=== PATIENT | male | born 1960 | race American Indian/Alaskan Native ===

== ENCOUNTER 2023-08-12 18:42 | Emergency (ER) | payer OTHER ==
[~2023-08-12] VITALS: Ht 182.9 cm; Wt 73.0 kg
[2023-08-12] MEDS ORDERED: SERTRALINE HCL25 MG PO (19:18)
[2023-08-12] MEDS ORDERED: LIPITOR20 MG (19:19)
[2023-08-12 20:00] LABS: BASOPHILS 1.8 % (0-2); EOSINOPHILS 3.6 % (0-6); HEMATOCRIT 43.7 % (35.0-50.0); HEMOGLOBIN 14.8 g/dL (12.0-18.0); LYMPHOCYTES 33.1 % (24-44); MCH 30.1 (27-36); MCHC 33.8 g/dl (30-36); MONOCYTES 8.6 % (0-12); NEUTROPHILS 52.9 % (39-80); PLATELET COUNT 269 K/uL (140-440); RBC 4.91 M/ul (4.3-5.7); RDW 13.6 (10.5-15.0)
[2023-08-12 20:15] LABS: ALBUMIN 3.2 g/dL (3.4-5.0); ALBUMIN/GLOBULIN RATIO 0.97 (1.1-2.4); ANION GAP 8.7 (7-21); BILIRUBIN, TOTAL 0.6 ng/dL (0.2-1.0); BUN/CREATININE RATIO 14.44 (6.0-28.6); CALCIUM 8.4 mg/dL (8.5-10.1); CREATININE, SERUM 0.9 mg/dL (0.70-1.30); POTASSIUM 3.7 mmol/L (3.5-5.1); PROTEIN, TOTAL 6.5 g/dL (6.4-8.2)
[2023-08-12] MEDS ORDERED: CYCLOBENZAPRINE HCL 10 MG TAB PO ONE (21:15)
[2023-08-12] MEDS ORDERED: DEXAMETHASONE SOD PHOS 10 MG/ML VIAL IV ONE (22:15)
[2023-08-12] MEDS ORDERED: Sodium Chloride 3% 500 ML IV ONE (22:15)
[2023-08-12 22:17] LABS: BILIRUBIN, URINE NEGATIVE (negative); BLOOD/HGB, URINE NEGATIVE (Negative); KETONE, URINE NEGATIVE (Negative); LEUK ESTERASE, URINE NEGATIVE (negative); NITRITE, URINE NEGATIVE (negative); PH, URINE 6.5 (5-7)
[2023-08-12 22:35] LABS: AMPHETAMINES, URINE NEGATIVE (NEGATIVE); BARBITURATES, URINE NEGATIVE (NEGATIVE); BENZODIAZEPINE, URINE NEGATIVE (NEGATIVE); BUPRENORPHINE, URINE NEGATIVE (NEGATIVE); CANNABINOID, URINE NEGATIVE (NEGATIVE); COCAINE, URINE NEGATIVE (NEGATIVE); ECSTASY, URINE NEGATIVE (NEGATIVE); FENTANYL, URINE NEGATIVE (NEGATIVE); METHADONE, URINE NEGATIVE (NEGATIVE); OPIATES, URINE NEGATIVE (NEGATIVE); OXYCODONE, URINE NEGATIVE (NEGATIVE); PHENCYCLIDINE, URINE NEGATIVE (NEGATIVE)
[2023-08-12 23:04] LABS: PH, VENOUS 7.413 (7.31-7.41)
[2023-08-12] MEDS ORDERED: LIDOCAINE 2% VISCOUS 6 ML SYR TOP ONE (23:45)
[2023-08-13 01:02] VITALS: BP 136/70
== END 2023-08-13 01:00 | disposition short-term general hospital (02) ==
LOC: ED 18:42
PROVIDERS: Family Medicine
DX: I61.9 Nontraumatic intracerebral hemorrhage, unspecified (principal); R53.1 Weakness; G93.5 Compression of brain; D32.0 Benign neoplasm of cerebral meninges; G20.A1 Parkinson's disease without dyskinesia, without mention of fluctuations; F02.80 Dementia in other diseases classified elsewhere, unspecified severity, without behavioral disturbance, psychotic disturbance, mood disturbance, and anxiety; Z79.899 Other long term (current) drug therapy
CPT/HCPCS: 36415; 51702; 70470; 80053; 80307; 81003; 82803; 85025; 99285-25; J1100; J7131; Q9967